=== PATIENT | male | born 1945 | race Caucasian/White ===

== ENCOUNTER 2016-05-19 06:41 | Inpatient (IN) | payer OTHER ==
[2016-04-23 08:58] VITALS: BMI 28.0
--- NOTE | 2016-04-23 09:37 | PAT Medication Instructions ---
Service Date Apr 23, 2016. Current Home Medication List Ascorbic Acid (Vitamin C), 1,000 MG PO QAM Aspirin (Aspirin Ec), 81 MG PO QAM Atorvastatin (Lipitor), 40 MG PO QPM Metformin Hcl (Glucophage), 1,000 MG PO BID Omeprazole (Prilosec), 20 MG PO QAM Ramipril (Altace), 5 MG PO QPM Saw Belk (Serenoa Repens) (Saw Belk), 450 MG PO QPM Terazosin (Hytrin), 5 MG PO QPM Medication Instructions For Your Scheduled Surgery - Hold the following medications 2 weeks prior to surgery: Saw Belk (Serenoa Repens) (Saw Belk), 450 MG PO QPM - Hold the following medications 48 hours prior to surgery: Metformin Hcl (Glucophage), 1,000 MG PO BID - Hold the following medications the morning of surgery: Ascorbic Acid (Vitamin C), 1,000 MG PO QAM - Take the following medications the morning of surgery with a sip of water OTHERWISE NOTHING TO EAT OR DRINK AFTER MIDNIGHT: Aspirin (Aspirin Ec), 81 MG PO QAM Omeprazole (Prilosec), 20 MG PO QAM - Take the following medications as scheduled the night before surgery: Terazosin (Hytrin), 5 MG PO QPM Atorvastatin (Lipitor), 40 MG PO QPM - Do not take the following medications the night before surgery: Ramipril (Altace), 5 MG PO QPM If you have any questions please call us at [phone] (Melinda Saenz PA-C) or [phone] or [phone]
[2016-04-23 09:44] LABS: BASO % 0.4 %; BASO ABS # 0.02 K/uL (0-0.2); COMPLETE YES; HEMATOCRIT 36.2 % (42-52); IG% 0.4 %; LYMPH % 20.4 %; LYMPH ABS # 1.08 K/uL (1.2-3.4); MEAN CELL VOLUME 89.6 fL (80-100); MEAN CORPUSCULAR HGB CONC 33.4 g/dl (32-36); MEAN PLATELET VOLUME 9.9 fL (7.4-10.4); MONO % 9.6 %; NEUT % 66.2 %; PLATELET COUNT 179 K/uL (130-400); RED BLOOD COUNT 4.04 M/uL (4.7-6.1); WHITE BLOOD COUNT 5.29 K/uL (4.8-10.8)
--- NOTE | 2016-04-23 10:10 | DIAGNOSTIC IMAGING REPORT ---
CHEST PREADMISSION(PA/LAT) HISTORY: Preop. COMPARISON: None. FINDINGS: Retrocardiac density favors a moderate hiatus hernia. The heart is normal in size. Mildly tortuous thoracic aorta. No pleural effusions. No pneumothorax. Calcified granulomas within the left lower lobe. IMPRESSION: No acute process within the chest. Moderate hiatus hernia. Electronically signed by: Navin Anthony M.D. 04/23/2016 10:08 AM
[2016-04-23 10:27] LABS: BUN/CREATININE RATIO 21.1 (10-20); CALCIUM 8.7 mg/dl (8.5-10.1); CREATININE 1.1 mg/dl (0.60-1.40); POTASSIUM 4.6 mmol/L (3.5-5.1)
--- NOTE | 2016-05-15 14:07 | HISTORY & PHYSICAL EXAMINATION ---
DATE OF ADMISSION: 05/19/2016 HISTORY OF PRESENT ILLNESS: The patient presents to our office with complaint of back and leg pain. Standing prolonged periods of time exacerbates his symptoms and his legs will start to weaken. He has trialed injections in the past which have been ineffective. Denies bowel or bladder dysfunction. PAST MEDICAL HISTORY: Significant for prostate cancer, MS in 2004, sleep apnea, hypercholesterolemia, diabetes. PAST SURGICAL HISTORY: Significant for 2 cardiac stents. ALLERGIES: None listed. MEDICATIONS: Include Prilosec 20 mg a day, metformin 500 mg 4 times a day, ramipril 5 mg a day, atorvastatin 40 mg a day, terazosin 5 mg a day, aspirin 81 mg daily, vitamin D 1000 mg daily, saw palmetto 450 mg daily. SOCIAL HISTORY: The patient is . 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 Alcohol none. Tobacco none. FAMILY HISTORY: Significant for arthritis, cardiovascular disease, cancer, hypercholesterolemia and thyroid disease. REVIEW OF SYSTEMS: Significant for frequent urination, cold intolerance, bruising, back pain. PHYSICAL EXAMINATION: VITAL SIGNS: 5 feet 9 inches, 180 pounds. HEENT: Speech appropriate. CARDIOPULMONARY: No gross abnormalities. ABDOMEN: Soft, nontender. GENITOURINARY: Deferred. NEUROLOGIC: Cranial nerves II through XII grossly intact. MUSCULOSKELETAL: He moves easily around the room. Strength is intact to bilateral lower extremities. Gait is stable. ASSESSMENT: Spinal stenosis, multilevel. PLAN: At this point in time, the patient has failed conservative therapy, would like to proceed with surgical intervention, which would require lumbar decompression and fusion L2-L3, L3-L4, L4-L5 and L5-S1. Risks, benefits, pros, cons, and alternatives were outlined in detail. She would like to proceed with the above-mentioned surgical intervention.
[~2016-05-19] VITALS: Ht 175.3 cm; Wt 84.0 kg
[2016-05-19] VITALS (8 sets, daily range): BP systolic 101–146; BP diastolic 65–89; PULSE 63–99; TEMP 36.5–37; O2SAT 96–98; Ht 175.3 cm; Wt 84.0 kg
[~2016-05-19 06:41] MED LIST: ASCO10003 PO; ASPI81TA28 PO; ATOR-24 PO; CEFAZOLIN 1000MG/55 ML D5W IV SCH; LACTATED RINGER'S 1000ML 1,000 ML IV SCH; METF-384 PO; PRLSR20 PO; RAMI5CAP32 PO; SAW450CA5 PO; TERA5CAP PO
--- NOTE | 2016-05-19 07:31 | History & Physical Bridge Note ---
H&P Re-Evaluation Bridge Note: I have examined the patient, reviewed the History & Physical and in the interval since the performance of the History & Physical I have noted the following changes of clinical significance: No changes noted
[2016-05-19] MEDS ORDERED: LIDOCAINE HCL 2% 2 ML VIAL (20MG/ML) ONE (08:44)
[2016-05-19] MEDS ORDERED: PROPOFOL IV EMULSION 10 MG/ML 20 ML VIAL IV ONE ×2 (08:44→10:28)
[2016-05-19] MEDS ORDERED: MIDAZOLAM HCL 1 MG/ML 2ML VIAL ONE (08:44)
[2016-05-19] MEDS ORDERED: FENTANYL CITRATE INJ 50 MCG/1 ML 2 ML VIAL ONE ×2 (08:44→11:34)
[2016-05-19] MEDS ORDERED: ROCURONIUM BROMIDE 10 MG/ML 5 ML VIAL ONE (08:44)
[2016-05-19] MEDS ORDERED: ALBUMIN HUMAN 5% 12.5 GM/250 ML VIAL IV ONE ×2 (09:07)
[2016-05-19] MEDS ORDERED: EpHEDrine SULFATE 50MG/5ML SYR ONE (10:28)
[2016-05-19] MEDS ORDERED: PHENYLEPHRINE HCL INJ 10 MG/ML VIAL ONE (10:28)
[2016-05-19] MEDS ORDERED: PHENYLEPHRINE 100MCG/ML 5ML SYR ONE (10:28)
[2016-05-19] MEDS ORDERED: CEFAZOLIN SOD 1 GM VIAL ONE (10:28)
[2016-05-19] MEDS ORDERED: DEXAMETHASONE SOD INJ 4 MG/ML VIAL ONE (10:28)
[2016-05-19] MEDS ORDERED: ONDANSETRON INJ 2 MG/ML 2 ML VIAL ONE (10:28)
[2016-05-19] MEDS ORDERED: BUPIVACAINE/EPINEPHRINE 0.5% MPF 1:200,000 30 ML VIAL INJ ONE (10:29)
[2016-05-19] MEDS ORDERED: HYDROmorphone INJ 2 MG/ML SYR/VIAL ONE (10:34)
[2016-05-19] MEDS ORDERED: NEOSTIGMINE METHYLSULFATE 1 MG/ML 10ML VIAL ONE (12:01)
[2016-05-19] MEDS ORDERED: GLYCOPYRROLATE INJ 0.2 MG/ML VIAL ONE (12:01)
[2016-05-19] MEDS ORDERED: FLOSEAL HEMOSTATIC MATRIX 10ML TOP ONE (12:07)
[2016-05-19] MEDS ORDERED: BACITRACIN 50000 UNIT VIAL IR ONE (12:07)
[2016-05-19] MEDS ORDERED: SODIUM CHLORIDE 0.9% 1000ML 1,000 ML IV SCH (12:10)
--- NOTE | 2016-05-19 12:10 | [facility] Post Operative Brief Note ---
Immediate Operative Summary Operative Date May 19, 2016. Pre-Operative Diagnosis Multilevel Spinal Stenosis Post-Operative Diagnosis Multilevel Spinal Stenosis Procedure(s) Performed L2-S1 Lumbar Laminectomy/Decompression, Discectomy; L2-S1 Posterolateral Fusion with instrumentation; Interbody Fusion, Placement of Interbody Device At L5-S1; Application of Ernestine Allograft, Bone Morphogenetic Protein Surgeon Dr. Liang Perales Heavy Truck Driver Surgeon(s) Bonnie Darden PA-C Estimated Blood Loss 310 ml Findings stenosis Specimens none per surgeon
[2016-05-19] MEDS ORDERED: ACETAMINOPHEN IV 100 ML IV PRN (12:15)
[2016-05-19] MEDS ORDERED: ALUMINUM/MAGNESIUM SUSP 30 ML UDC PO PRN (12:15)
[2016-05-19] MEDS ORDERED: ACETAMINOPHEN 500 MG TAB PO PRN (12:15)
[2016-05-19] MEDS ORDERED: FAMOTIDINE 20 MG TAB PO PRN (12:15)
[2016-05-19] MEDS ORDERED: LORAZEPAM INJ 0.5 MG in SYRINGE 0.75 ML IV PRN (12:15)
[2016-05-19] MEDS ORDERED: PROMETHAZINE HCL INJ 12.5 MG in SODIUM CHLORIDE 0.9% 50ML 50 ML IV PRN ×2 (12:15→12:45)
[2016-05-19] MEDS ORDERED: SOD PHOSPHATE/SOD BIPHOSPHATE ENEMA 132 ML BTL PR PRN (12:15)
[2016-05-19] MEDS ORDERED: HYDROmorphone HCL 0.5MG/ML 50 ML CASSETTE IV PRN (12:15)
[2016-05-19] MEDS ORDERED: METOCLOPRAMIDE HCL INJ 5 MG/ML 2 ML VIAL IV PRN (12:15)
[2016-05-19] MEDS ORDERED: DO NOT ADMINISTER PNEUMOCOCCAL VACCINE PRN ×2 (12:15)
[2016-05-19] MEDS ORDERED: LORAZEPAM 0.5 MG TAB PO PRN (12:15)
[2016-05-19] MEDS ORDERED: NALOXONE HCL 0.4 MG/1 ML VIAL/CARP IV PRN ×3 (12:15→12:45)
[2016-05-19] MEDS ORDERED: ONDANSETRON INJ 2 MG/ML 2 ML VIAL IV PRN ×2 (12:15→12:45)
[2016-05-19] MEDS ORDERED: DO NOT ADMINISTER FLU VACCINE PRN ×3 (12:15)
[2016-05-19] MEDS ORDERED: MAGNESIUM HYDROXIDE SUSP 30 ML UDC PO PRN (12:15)
[2016-05-19] MEDS ORDERED: hydrOXYzine HCL 25 MG TAB PO PRN (12:15)
[2016-05-19] MEDS ORDERED: BISACODYL 10 MG SUPP PR PRN (12:15)
[2016-05-19] MEDS ORDERED: HYDROmorphone HCL 0.5MG/ML 50 ML CASSETTE ONE (12:38)
[2016-05-19] MEDS ORDERED: EpHEDrine SULFATE INJ 50 MG/ML AMP IV PRN (12:45)
[2016-05-19] MEDS ORDERED: LABETALOL HCL IV 5 MG/ML 20ML IV PRN (12:45)
[2016-05-19] MEDS ORDERED: FLUMAZENIL 0.1 MG/1 ML 10 ML VIAL IV PRN (12:45)
[2016-05-19] MEDS ORDERED: HYDROmorphone INJ 1 MG/ML SYR IV PRN (12:45)
[2016-05-19] MEDS ORDERED: ATROPINE SULFATE 0.1 MG/ML 5ML SYR IV PRN (12:45)
--- NOTE | 2016-05-19 12:55 | DIAGNOSTIC IMAGING REPORT ---
LUMBAR SPINE, INTRAOPERATIVE FLUOROSCOPY HISTORY: L2-S1 decompression and fusion. FLUOROSCOPY TIME: 20 seconds. FINDINGS: Intraoperative fluoroscopy was provided for the lumbar spine. 4 fluoroscopic spot images were obtained. Posterior decompression fusion from L2 through S1 with pedicle screws and rods. The hardware appears intact. IMPRESSION: Fluoroscopy provided for a L2-S1 posterior decompression and fusion. Electronically signed by: Navin Anthony M.D. 05/19/2016 12:53 PM Dictated Date/Time: 05/19/2016 12:52 PM
[2016-05-19 13:01] LABS: HEMATOCRIT 33.3 % (42-52)
--- NOTE | 2016-05-19 13:08 | Anesthesiology Progress Note ---
Anesthesia Post Op Note Date & Time May 19, 2016 at 13:07 Vital Signs Pain Intensity: 0 Vital Signs Past 12 Hours Date Time Temp Pulse Resp B/P Pulse Ox O2 Delivery O2 Flow Rate FiO2 05/19/16 13:00 75 16 128/72 96 Mask 4 05/19/16 12:50 72 16 120/72 98 Mask 10 05/19/16 12:40 80 16 135/78 99 Mask 10 05/19/16 12:32 36.3 96 16 126/85 98 Mask 10 05/19/16 07:15 36.9 63 20 139/84 97 Room Air Notes Mental Status: alert / awake / arousable, participated in evaluation Pt Amnestic to Procedure: Yes Nausea / Vomiting: adequately controlled Pain: adequately controlled Airway Patency, RR, SpO2: stable & adequate BP & HR: stable & adequate Hydration State: stable & adequate Anesthetic Complications: no major complications apparent
[2016-05-19] MEDS ORDERED: PHARMACY GLYCEMIC MGMT CONSULT PRN (14:32)
--- NOTE | 2016-05-19 14:47 | Pharmacy Progress Note ---
Glycemic Control Intl Consult Date of Service May 19, 2016. Scope Glycemic Pharmacist consulted by Dr Yao on 05/19/16 for glycemic control and to write orders per [facility] inpatient glycemic control protocol Objective Weight (Kilograms): 84.000 Accuchecks BSG (last 24hrs): Test 05/19/16 07:04 05/19/16 12:34 Bedside Glucose 122 mg/dl (70-99) 173 mg/dl (70-99) Recent Pertinent Medications Outpatient Anti-diabetic Regimen: * Metformin 1000 mg po BID * A1c pending for 05/20/16 Risk Factors for Insulin Resistance: * Steroids: Dexamethasone 8 mg IV x1 preop then q8h post-op x3 doses * Infection: Cefazolin pre- and post-op * Recent Surgery: POD 0 s/p lumbar decompression * Diet: Regular Assessment & Plan ASSESSMENT: * ADA & AACE recommend a goal blood sugar range 140-180 mg/dl for the majority of critically ill & non-critically ill patients. However, more stringent targets may be selected in individual cases. * 71 yo M with unknown outpatient HbA1c managed on orals alone. * Will have higher goal range for unknown HbA1c * Will start with Lantus higher dose x1 then continue for a total daily dose of 0.1 units/kg while patient on dexamethasone * Will start with weight-based correction factor and carb ratio PLAN FOR INPATIENT GLYCEMIC CONTROL: * Hold outpatient oral diabetes medications * Basal insulin with LANTUS 6 units SQ x1 then 4 units SC BID (hold for BSG < 120 mg/dL) * Correctional Insulin with NOVOLOG per scale ACHS or Q6hrs while NPO * Goal Range: Low 120 mg/dL - High 160 mg/dL * Correction Factor: 30 mg/dL/unit * Nutritional / Prandial insulin per carb ratio of 1 unit per 9 grams CHO consumed * Please note that the plan above was derived based on current level of insulin resistance and hospital stress. These recommendations are appropriate for inpatient admission only. Plan of care upon discharge will need to be reassessed to avoid potential outpatient hypo/hyperglycemia. Thank you.
--- NOTE | 2016-05-19 16:37 | OPERATIVE REPORT ---
DATE OF OPERATION: 05/19/2016 PREOPERATIVE DIAGNOSIS: Spinal stenosis. POSTOPERATIVE DIAGNOSIS: Same. PROCEDURES PERFORMED: 1. Lumbar decompression and medial facetectomy and foraminotomy L2-3, L3-4, L4-5, L5-S1. 2. Posterior spinal fusion L2-3, L3-4, L4-5, L5-S1. 3. Placement posterior segmental instrumentation using Orthros rods and screws L2, L3, L4, L5 and S1. 4. Interbody fusion L5-S1. 5. Placement of PEEK cage 12 x 26 mm at L5-S1. 6. Placement of locally harvested morcellized autograft posterior gutters. 7. Placement of Infuse collagen sponge combined with Mastergraft in the posterior gutters and Ernestine bone grafting in interbody space. SURGEON: Dr. Liang Yao. DIVING SUPERVISOR: Bonnie Palumbo PA-C. Due to the complex nature of the procedure, the entire surgery was performed with the resident programs assistant of MACHO Finn. The assistant program director, under direct supervision, was involved in the actual performance of all aspects of the surgical procedure including hemostasis, tissue retraction and incision, instrument management, patient positioning, and wound closure. ANESTHESIA: General. DISPOSITION: The patient awakened and taken to PACU in stable condition. HISTORY OF PATIENT'S PROBLEMS: This is a 71-year-old male who presents with above-mentioned diagnosis after failing an extensive course of nonoperative care, elected to undergo the above-mentioned procedure. Risks, benefits, pros, cons, and alternatives were outlined in detail preoperatively. DESCRIPTION OF PROCEDURE: The patient was met with preoperatively, case discussed and all questions were addressed. At that point, the patient was taken back to operative suite and after undergoing successful general intubation by the department of anesthesia, was placed in prone position on Marvin table atop Augustine frame. All bony prominences were well padded and the eyes were inspected to ensure there was no external pressure placed upon them. At this point, lumbar spine was prepped and draped in normal sterile fashion. Sharp dissection with the assistance of Bovie cautery performed down to and exposing the lamina and transverse processes of L2, L3, L4, L5 and sacral ala bilaterally. From a caudal to cephalad fashion, complete laminectomy of L5, L4, L3 and L2 was performed addressing severe central and lateral recess disease. Pedicle screws were then placed in L2, L3, L4, L5 and S1 levels bilaterally with assistance of fluoroscopy and appropriate size shaquille provisionally placed. Through transforaminal approach on the left, a complete discectomy of L5-S1 was performed, endplates curetted to subcortical bleeding bone and a 12 x 26 mm PEEK cage filled with Ernestine bone grafting tapped into position. The rods were then locked into position bilaterally and transverse processes of L2, L3, L4, L5 and sacral ala burred to subcortical bone. Infuse collagen sponge combined with Mastergraft and locally harvested morcellized autograft was placed in the posterior gutters. A 7 flat HOWIE drain was inserted. Incision was closed with 1-0 Vicryl in the fascia, 2-0 Vicryl subcutaneously, 4-0 Monocryl for final skin closure. Steri-Strips and sterile dressing placed. The patient was awakened and taken to PACU in stable condition. I attest to the content of the Intraoperative Record and any orders documented therein. Any exceptio ns are noted below.
[2016-05-19] MEDS: LACTATED RINGER'S 1000ML 1,000 ML IV SCH ×2 (16:43→21:26)
[2016-05-19] MEDS ORDERED: INSULIN GLARGINE SOLOSTAR 100 UNITS/ML 3 ML PEN SC ONE (16:45)
[2016-05-19] MEDS: CEFAZOLIN IV 2,000 MG in DEXTROSE 5% 50ML 50 ML IV SCH (17:13)
[2016-05-19] MEDS: DEXAMETHASONE INJ 6 MG in SYRINGE 0 ML IV SCH (17:52)
[2016-05-19] MEDS: INSULIN ASPART 100 UNITS/ML 3 ML PEN SC SCH ×2 (18:30→21:23)
[2016-05-19] MEDS: DOCUSATE SODIUM/SENNA 50/8.6MG TAB PO SCH (21:08)
[2016-05-19] MEDS: ENALAPRIL MALEATE 10 MG TAB PO SCH (21:08)
[2016-05-19] MEDS: ATORVASTATIN 40 MG TAB PO SCH (21:09)
[2016-05-20] MEDS: DEXAMETHASONE INJ 6 MG in SYRINGE 0 ML IV SCH ×2 (01:59→08:59)
[2016-05-20] MEDS: CEFAZOLIN IV 2,000 MG in DEXTROSE 5% 50ML 50 ML IV SCH (01:59)
[2016-05-20] MEDS: LACTATED RINGER'S 1000ML 1,000 ML IV SCH (05:35)
[2016-05-20] MEDS ORDERED: OXYCODONE HCL IR 5 MG TAB (IMMEDIATE RELEASE) PO PRN (06:00)
[2016-05-20] MEDS ORDERED: HYDROmorphone INJ 1 MG/ML SYR IV PRN (06:00)
[2016-05-20] MEDS ORDERED: DC PCA ONE (06:00)
[2016-05-20] MEDS ORDERED: HYDROmorphone INJ 0.5 MG/0.5 ML SYR IV PRN (06:00)
[2016-05-20] MEDS ORDERED: NURSING DECISION MEDICATION ORDER SCH (06:00)
[2016-05-20 06:01] LABS: COMPLETE YES; HEMATOCRIT 28.5 % (42-52); IG% 0.3 %; LYMPH % 4.1 %; LYMPH ABS # 0.45 K/uL (1.2-3.4); MEAN CORPUSCULAR HEMOGLOBIN 30.6 pg (25-34); MEAN CORPUSCULAR HGB CONC 34.7 g/dl (32-36); MEAN PLATELET VOLUME 9.3 fL (7.4-10.4); MONO % 6.6 %; PLATELET COUNT 160 K/uL (130-400); RED BLOOD COUNT 3.24 M/uL (4.7-6.1); WHITE BLOOD COUNT 10.87 K/uL (4.8-10.8)
[2016-05-20 06:31] LABS: BUN/CREATININE RATIO 16.7 (10-20); CALCIUM 8.1 mg/dl (8.5-10.1); CREATININE 1.1 mg/dl (0.60-1.40); POTASSIUM 4.4 mmol/L (3.5-5.1)
[2016-05-20 06:44] LABS: ESTIMATED AVERAGE GLUCOSE 148 mg/dl; HA1C FLAG Normal (Normal)
[2016-05-20 07:48] VITALS: BP 95/58; PULSE 74; TEMP 36.7; O2SAT 95
--- NOTE | 2016-05-20 08:09 | Anesthesiology Progress Note ---
Anesthesia Post Op Note Date & Time May 20, 2016 at 08:08 Vital Signs Vital Signs Past 12 Hours Date Time Temp Pulse Resp B/P Pulse Ox O2 Delivery O2 Flow Rate FiO2 05/20/16 07:48 36.7 74 16 95/58 95 Room Air 05/19/16 23:02 37.0 85 18 102/65 96 Room Air 05/19/16 20:40 36.9 79 20 104/72 97 Room Air Notes Mental Status: alert / awake / arousable, participated in evaluation Pt Amnestic to Procedure: Yes Nausea / Vomiting: adequately controlled Pain: adequately controlled Airway Patency, RR, SpO2: stable & adequate BP & HR: stable & adequate Hydration State: stable & adequate Anesthetic Complications: no major complications apparent
[2016-05-20] MEDS: ASPIRIN 81 MG ECTAB PO SCH (08:51)
[2016-05-20] MEDS: PANTOprazole SOD 40 MG TAB PO SCH (08:52)
[2016-05-20] MEDS: INSULIN ASPART 100 UNITS/ML 3 ML PEN SC SCH ×4 (08:58→22:09)
[2016-05-20] MEDS: INSULIN GLARGINE SOLOSTAR 100 UNITS/ML 3 ML PEN SC SCH ×2 (08:59→22:10)
--- NOTE | 2016-05-20 10:18 | Pharmacy Progress Note ---
Glycemic Control: Progress Nt Date of Service May 20, 2016. Scope Glycemic Pharmacist consulted by Dr Yao on 05/19/16 for glycemic control and to write orders per [facility] inpatient glycemic control protocol. Objective Accuchecks BSG (last 24hrs): Test 05/19/16 12:34 05/19/16 16:46 05/19/16 20:56 05/20/16 05:27 Bedside Glucose 173 mg/dl (70-99) 184 mg/dl (70-99) 301 mg/dl (70-99) Random Glucose 203 mg/dl (70-99) Test 05/20/16 07:54 Bedside Glucose 187 mg/dl (70-99) Laboratory Data (last 24hrs) Test 05/20/16 05:27 Anion Gap 10.0 mmol/L BUN/Creatinine Ratio 16.7 Blood Urea Nitrogen 18 mg/dl Creatinine 1.10 mg/dl Hemoglobin A1c 6.8 % Potassium Level 4.4 mmol/L Sodium Level 139 mmol/L White Blood Count 10.87 K/uL Red Blood Count 3.24 M/uL Hemoglobin 9.9 g/dL Hematocrit 28.5 % Mean Corpuscular Volume 88.0 fL Mean Corpuscular Hemoglobin 30.6 pg Mean Corpuscular Hemoglobin Concent 34.7 g/dl Platelet Count 160 K/uL Mean Platelet Volume 9.3 fL Neutrophils (%) (Auto) 89.0 % Lymphocytes (%) (Auto) 4.1 % Monocytes (%) (Auto) 6.6 % Eosinophils (%) (Auto) 0.0 % Basophils (%) (Auto) 0.0 % Neutrophils # (Auto) 9.67 K/uL Lymphocytes # (Auto) 0.45 K/uL Monocytes # (Auto) 0.72 K/uL Eosinophils # (Auto) 0.00 K/uL Basophils # (Auto) 0.00 K/uL HbA1c: Test 05/20/16 05:27 Hemoglobin A1c 6.8 % (4.5-5.6) H Recent Pertinent Medications Outpatient Anti-diabetic Regimen: * Metformin 1000 mg po BID * A1c pending for 05/20/16 The patient is currently receiving: * Basal insulin with LANTUS 4 units SC BID (hold for BSG < 120 mg/dL) * Correctional Insulin with NOVOLOG per scale ACHS or Q6hrs while NPO * Goal Range: Low 120 mg/dL - High 160 mg/dL * Correction Factor: 30 mg/dL/unit * Nutritional / Prandial insulin per carb ratio of 1 unit per 9 grams CHO consumed Risk Factors for Insulin Resistance: * Steroids: Dexamethasone 8 mg IV x1 preop then q8h post-op x3 doses (last dose 05/20 @ 1000) * Recent Surgery: POD 1 s/p lumbar decompression * Diet: T2DM Assessment & Plan ASSESSMENT: * ADA & AACE recommend a goal blood sugar range 140-180 mg/dl for the majority of critically ill & non-critically ill patients. However, more stringent targets may be selected in individual cases. 05/19/16 * 71 yo M with unknown outpatient HbA1c managed on orals alone. * Will have higher goal range for unknown HbA1c * Will start with Lantus higher dose x1 then continue for a total daily dose of 0.1 units/kg while patient on dexamethasone * Will start with weight-based correction factor and carb ratio 05/20/16 * Last dose of dex was this AM, but effects expected to persist for at least 24 hours * BSG's increased to 301 mg/dL yesterday at HS - carb count likely too loose. Will tighten. * AM fasting and lunch BSG elevated but Lantus not fully on-board yet * OK to decrease goal range now that patient-specific insulin sensitivity ( while steroids on board) is better understood PLAN FOR INPATIENT GLYCEMIC CONTROL: * Hold outpatient oral diabetes medications * Basal insulin with LANTUS 4 units SC BID (hold for BSG < 120 mg/dL) * Correctional Insulin with NOVOLOG per scale ACHS or Q6hrs while NPO * Decrease Goal Range: Low 110 mg/dL - High 140 mg/dL * Correction Factor: 30 mg/dL/unit * Tighten Nutritional / Prandial insulin per carb ratio of 1 unit per 8 grams CHO consumed * Please note that the plan above was derived based on current level of insulin resistance and hospital stress. These recommendations are appropriate for inpatient admission only. Plan of care upon discharge will need to be reassessed to avoid potential outpatient hypo/hyperglycemia. Thank you.
[2016-05-20 11:14] VITALS: BP 91/56; PULSE 70; TEMP 36.8; O2SAT 95
[2016-05-20 15:25] VITALS: BP 92/55; PULSE 71; TEMP 36.7; O2SAT 96
--- NOTE | 2016-05-20 20:04 | PROGRESS NOTE ---
DATE: 05/20/2016 SUBJECTIVE: Postop day #1. Back pain controlled. Leg pain improved. Vital signs stable. T-max 36.8. HOWIE drained 500 mL today. Hematocrit stable at 28.5. OBJECTIVE: On exam, the patient has good strength to testing. Appears comfortable. ASSESSMENT: Status post lumbar decompression and fusion. PLAN: At this time, we will continue physical therapy, advance his bowel regimen and hopefully discharge to home in the next day or so.
[2016-05-20] MEDS: ENALAPRIL MALEATE 10 MG TAB PO SCH (22:26)
[2016-05-20] MEDS: ATORVASTATIN 40 MG TAB PO SCH (22:27)
[2016-05-20] MEDS: DOCUSATE SODIUM/SENNA 50/8.6MG TAB PO SCH (22:28)
[2016-05-20 23:40] VITALS: BP 98/58; PULSE 92; TEMP 36.8; O2SAT 97
[2016-05-21] MEDS: POLYETHYLENE (MIRALAX) 17 GM PACK PO SCH ×3 (05:57→18:21)
[2016-05-21 06:52] VITALS: BP 99/65; PULSE 72; TEMP 36.8; O2SAT 97
[2016-05-21] MEDS: PANTOprazole SOD 40 MG TAB PO SCH (08:51)
[2016-05-21] MEDS: ASPIRIN 81 MG ECTAB PO SCH (08:51)
[2016-05-21] MEDS: INSULIN ASPART 100 UNITS/ML 3 ML PEN SC SCH ×4 (08:54→20:41)
[2016-05-21] MEDS: INSULIN GLARGINE SOLOSTAR 100 UNITS/ML 3 ML PEN SC SCH (08:55)
[2016-05-21 09:12] VITALS: BP 98/56
[2016-05-21] MEDS ORDERED: RXC5 PO (09:49)
--- NOTE | 2016-05-21 09:49 | Discharge Instructions ---
Discharge Instructions Admission Reason for Admission: Lumbar Spinal Stenosis Discharge Discharge Diagnosis / Problem: stenosis Discharge Goals Goal(s): Improve function Activity Recommendations Activity Limitations: per Instructions/Follow-up section . Instructions / Follow-Up Instructions / Follow-Up ACTIVITY RECOMMENDATIONS: SELF CARE INSTRUCTIONS AFTER THORACIC/LUMBAR FUSIONS 1. You may walk to your tolerance. It is good exercise for your legs and back. Expect some back and intermittent leg aches and pains. 2. You may perform "counter-top" level activities (make a sandwich, hayley with a project, etc.). 3. No bending or lifting of more than 10 pounds or back twisting of any nature (roll like a log when turning in bed). 4. You may ride in a car for 20-30 minutes at a time. No driving until after your first visit with your doctor. 5. Frequent changes of position and restricting sitting to 30 minutes at a time will help limit the amount of back spasms and stiffness you may experience. 6. You may discontinue the use of ambulatory aids (cane, crutches, etc.) once your strength and confidence allow. 7. You may instrumentation designer the shower and let water strike your incision when you arrive home at least once daily. Do not take a tub bath, sit in a hot tub or go into a swimming pool until after your first recheck in the office. SPECIAL CARE INSTRUCTIONS: VERY IMPORTANT TO READ AND REVIEW A. Your surgical incision has been closed with a cosmetic suture under the skin that will dissolve in about 6 weeks. In 14 days, you can use a pair of clean scissors and cut the suture that is left outside of the skin at the ends of your incision. 1. The small skin tapes can be removed 7 days after surgery if they have not fallen off by that point. 2. You may keep the wound open to air as much as possible to promote healing after post-op day number 5 unless told otherwise by your doctor. 3. If you think the wound looks like it is becoming infected (redness or worsening drainage) and/or you are experiencing fever, chill or worsening back pain and muscle spasms, contact the office so that we may evaluate you as soon as possible. B. Complications are uncommon, but please contact us if you have any signs or symptoms of: 1. wound infection (fever higher than 102.5 degrees F, redness, separation of wound, drainage, or increasing pain from the incision) 2. blood clots in legs (pain, swelling, redness and warmth in legs) 3. urinary tract infection (fever higher than 102.5 degrees F, burning upon urination or increased frequency of urination) 4. nerve problems (inability to walk on your toes or heels, numbness, loss of bowel or bladder control) 5. any other symptoms that concern you C. Please call the office at if you have any concerns or questions about your operation or recovery. D. No smoking! Smoking drastically decreases the chance of a solid fusion. E. Do not take any anti-inflammatory medications (Indocin, Advil, Motrin, Aspirin, Naprosyn, etc.) as these may inhibit the chance of a solid fusion. Tylenol is okay to take for pain. MANAGING PAIN AFTER SPINAL SURGERY 1. Narcotic medication is intended for short-term use and will be provided for surgical pain. Surgical pain usually lasts for a period of 4-6 weeks. Narcotic medication includes Percocet, Vicodin, Darvocet, Tylenol #3 or Lortab. 2. Longer-term pain is more appropriately treated with non-narcotic medication such as Tylenol ES. 3. Muscle spasm is not appropriately treated with narcotics. Muscle relaxers such as Soma, Flexeril or Skelaxin can be used along with Tylenol ES. 4. Remember that we all live with some "aches and pains". This is not unusual or uncommon after an injury or as we get older. a. Back pain is expected and may include muscle spasms for 4 to 6 weeks after surgery. The pain should gradually improve. If the pain worsens for no apparent reason, please contact the office. b. Intermittent leg pain may also be experienced and should not be concerned about unless it worsens for no apparent reason. If so, please contact the office. 5. We will provide appropriate medication within the normal guidelines of their prescribed use. We will also be very cautious and aware of potential abuse and extended duration of patients' medication needs. a. Pain medications are for your comfort and to assist with sleep and rest so that the tissue can heal. They are not provided in order to return to normal activity and should not be used through the day. To do so or worsening pain at night can result from ongoing tissue damage and development of tolerance to the prescribed medicine. 6. Please allow 2-3 days to process refills. Prescriptions will not be mailed but must be picked up at the office. FOLLOW UP VISIT: Keep your scheduled follow-up appointment. Any questions, please call the office at . Current Hospital Diet Patient's current hospital diet: Diabetes Type 2 Diet Discharge Diet Recommended Diet: Regular Diet Procedures Procedures Performed: L2-S1 Lumbar Laminectomy/Decompression, Discectomy; L2-S1 Posterolateral Fusion with instrumentation; Interbody Fusion, Placement of Interbody Device At L5-S1; Application of Ernestine Allograft, Bone Morphogenetic Protein Pending Studies Studies pending at discharge: no Laboratory Results Hemoglobin A1c Test 05/20/16 05:27 Range/Units Estimated Average Glucose 148 mg/dl Hemoglobin A1c 6.8 H 4.5-5.6 % Medical Emergencies . Who to Call and When: Medical Emergencies: If at any time you feel your situation is an emergency, please call 911 immediately. . Non-Emergent Contact Non-Emergency issues call your: Primary Care Provider . "Provider Documentation" section prepared by Liang Yao. VTE Core Measure Inpt VTE Proph given/why not?: Raoul Montes, SCD's
--- NOTE | 2016-05-21 10:05 | PROGRESS NOTE ---
DATE: 05/21/2016 Postop day 2. Back pain is controlled. Leg pain markedly improved. Vital signs stable. T-max 36.8. HOWIE drained 130 mL last night. Hematocrit this a.m. is 28.5. On exam, the patient is in chair at bedside. Has good strength to testing, appears quite comfortable. ASSESSMENT: Status post multilevel lumbar decompression and fusion. PLAN: At this time, we would continue physical therapy, monitor HOWIE output and anticipate home tomorrow.
--- NOTE | 2016-05-21 14:13 | Pharmacy Progress Note ---
Glycemic: Assessment & Plan Date of Service May 21, 2016. Assessment & Plan Assessment * Last dose of dexamethsone yesterday afternoon - steroid effects likely still present, but dissipating. Patient managed on oral diabetes medications alone at home. * Will stop Lantus at this time * Will eliminate carb ratio starting tomorrow AM as steroid effects likely mostly gone * Will resume metformin tomorrow AM in anticipation of discharge Plan * Basal insulin: Discontinue Lantus * Correctional Insulin: Novolog Correction per scale ACHS Goal Range: Low 120 mg/dL - High 160 mg/dL Correction Factor: 30 mg/dL/unit * Prandial insulin: Per carb ratio of 1 unit per 8 grams CHO consumed - discontinue 05/22 AM * Oral medications: Resume metformin 1000 mg po BID starting 05/22 AM Pharmacy will continue to monitor patient daily and write orders per [facility] inpatient glycemic control protocol. Thanks. * Please note that the plan above was derived based on current level of insulin resistance and hospital stress. These recommendations are appropriate for inpatient admission only. Plan of care upon discharge will need to be reassessed to avoid potential outpatient hypo/hyperglycemia.
[2016-05-21 16:06] VITALS: BP 104/67; PULSE 60; TEMP 37; O2SAT 99
[2016-05-21] MEDS: DOCUSATE SODIUM/SENNA 50/8.6MG TAB PO SCH (20:43)
[2016-05-21] MEDS: ATORVASTATIN 40 MG TAB PO SCH (20:43)
[2016-05-21] MEDS: ENALAPRIL MALEATE 10 MG TAB PO SCH (20:43)
[2016-05-21 23:57] VITALS: BP 90/51; PULSE 73; TEMP 37.1; O2SAT 96
[2016-05-22] MEDS: POLYETHYLENE (MIRALAX) 17 GM PACK PO SCH ×3 (00:17→12:10)
[2016-05-22 06:07] VITALS: BP 111/56; PULSE 62; TEMP 36.9; O2SAT 97
[2016-05-22] MEDS: ASPIRIN 81 MG ECTAB PO SCH (08:06)
[2016-05-22] MEDS: PANTOprazole SOD 40 MG TAB PO SCH (08:06)
[2016-05-22] MEDS: INSULIN ASPART 100 UNITS/ML 3 ML PEN SC SCH ×2 (08:14→12:00)
[2016-05-22] MEDS ORDERED: METFORMIN HCL 500 MG TAB PO SCH (08:30)
[2016-05-22 09:23] VITALS: BP 111/56; PULSE 62; TEMP 36.9; O2SAT 97
--- NOTE | 2016-05-22 14:33 | DISCHARGE SUMMARY ---
PRINCIPAL DIAGNOSIS: Spinal stenosis. HOSPITAL COURSE FOLLOWS: On May 19, the patient underwent multilevel lumbar decompression and fusion, tolerated this well and taken to the orthopedic floor postoperatively. Postop day #1, he was up and ambulatory, progressed to postop day #2. Subsequent postop day #3, his pain was well controlled, ambulating well and discharged home. Discharge orders and instructions found on the chart for further review.
== END 2016-05-22 15:00 | disposition home or self-care (01) | DRG 460 ==
LOC: ENRESERVTM → ENRESERVDT → C.ACU 06:41 → C.3E 07:30
PROVIDERS: ADMIT Orthopaedic Surgery Orthopaedic Surgery of the Spine; ATTEND Orthopaedic Surgery Orthopaedic Surgery of the Spine
PROC: 0SG30AJ Fusion of Lumbosacral Joint with Interbody Fusion Device, Posterior Approach, Anterior Column, Open Approach (ICD-10-PCS; principal; 2016-05-19 08:35)
PROC: 3E0U0GB Introduction of Recombinant Bone Morphogenetic Protein into Joints, Open Approach (ICD-10-PCS; principal; 2016-05-19 08:35)
PROC: 0SG3071 Fusion of Lumbosacral Joint with Autologous Tissue Substitute, Posterior Approach, Posterior Column, Open Approach (ICD-10-PCS; principal; 2016-05-19 08:35)
PROC: 0SG1071 Fusion of 2 or more Lumbar Vertebral Joints with Autologous Tissue Substitute, Posterior Approach, Posterior Column, Open Approach (ICD-10-PCS; principal; 2016-05-19 08:35)
PROC: 0ST40ZZ Resection of Lumbosacral Disc, Open Approach (ICD-10-PCS; principal; 2016-05-19 08:35)
DX: M48.06 Spinal stenosis, lumbar region (principal); M48.07 Spinal stenosis, lumbosacral region; I25.10 Atherosclerotic heart disease of native coronary artery without angina pectoris; I10 Essential (primary) hypertension; E78.00 Pure hypercholesterolemia, unspecified; K21.9 Gastro-esophageal reflux disease without esophagitis; E11.42 Type 2 diabetes mellitus with diabetic polyneuropathy; G47.30 Sleep apnea, unspecified; I25.2 Old myocardial infarction; Z95.5 Presence of coronary angioplasty implant and graft; Z79.82 Long term (current) use of aspirin; Z79.84 Long term (current) use of oral hypoglycemic drugs; Z79.899 Other long term (current) drug therapy